=== PATIENT | male | born 1980 | race Caucasian/White ===

== ENCOUNTER 2016-06-25 16:45 | Observation (INO) | payer BC ==
--- NOTE | ~2016-06-25 | OP ---
Record Of Operation [facility] [address] [place]. [address] NAME: DOMENIC MOORE : 82 STATUS : ADM Dae PAT#: [id number] AGE: 35 ADM/REG DATE : 06/25/16 MR#: [id number] REPORT SERV DATE: 06/26/16 DICTATED BY: NICK LUNDY III DATE: 06/26/16 REPORT STATUS : Draft TRANSCRIBED BY: MODL DATE: 06/26/16 DATE OF PROCEDURE: 06/26/2016 PROCEDURES: Cystoscopy, right retrograde, ureteroscopy and insertion of double-J stent. PREOPERATIVE DIAGNOSIS: Right ureteral calculus. POSTOPERATIVE DIAGNOSIS: Right ureteral calculus. ANESTHESIA: General. SURGEON: Nick Lundy M.D. PROCEDURE IN DETAIL: Following induction of adequate general anesthesia, the patient was placed in dorsal lithotomy position and prepped and draped in a sterile fashion. The urethra was examined and noted to be normal. The prostate was small, nonobstructing. The bladder was entered. There were no tumors, stones, or foreign bodies. A left retrograde was done showing a somewhat small distal ureter, approximately a third of the pelvic ureter and up to a 9 to 10 mm stone at the level of the iliac vessels. There was a fair amount of hydronephrosis above the dye. He required a little bit of pressure to get dye into the upper ureter. A wire was placed easily around the stone and coiled in the upper pole of the kidney. I then tried to pass a ureteral scope alongside the wire and the ureter and the orifice was simply too tight. I tried to pass a wire over the wire. It was still very narrow. I was able to pass a Lucinda several centimeters, but began meeting resistance. At this point, I tried a second wire to spread the ureter and at this point, I was not able to maneuver above the distal orifice. A 4 cm balloon dilator was attempted and met significant resistance. After that, I was able to get the ureteroscope just inside the orifice probably to the bladder hiatus and saw no stone. The ureter simply was quite narrow. I injected through this and saw no filling defects. I did not persist with a ballooning more than one attempt. I felt that further manipulation especially if it required a lot of pressure to pass the balloon could risk an injury to the ureter. I elected to place a 5-Montserratian 26 cm stent. The renal pelvis was opacified after I was finally able to get a Lucinda and the position of the wire was doubly verified and a 5-Montserratian Polaris stent passed fairly easily into the upper pole calyx. It was pulled down so there was a loop in the renal pelvis, as well as a loop in the bladder. The patient tolerated the procedure well and will need a second look in two-three weeks. OB/MODL Nick Lundy III, M.D. / [id number] Record Of Operation [address] [address] NAME: DOMENIC MOORE : 82 STATUS : ADM Dae PAT#: [id number] AGE: 35 ADM/REG DATE : 06/25/16 MR#: [id number] REPORT SERV DATE: 06/26/16 DICTATED BY: NICK LUNDY III DATE: 06/26/16 REPORT STATUS : Draft TRANSCRIBED BY: JULISA DATE: 06/26/16 CC: Nick Lundy III, M.D.
[~2016-06-25 16:45] MED LIST: CIP2 PO
[2016-06-25 20:34] LABS: ASCORBIC ACID (UR NOT ORDER) NEG (NEG); BILIRUBIN, URINE NEGATIVE (NEG); KETONE, URINE NEGATIVE (NEG); LEUKOCYTE ESTERASE(NOT OR TRACE (NEG); WBC (NOT ORDERED) (RFLEX) < 1 (0-5)
[2016-06-26 06:08] LABS: BUN (BLOOD UREA NITROGEN) 13 MG/DL (6-23); CALCIUM, SERUM 8.5 MG/DL (8.5-10.4); CHLORIDE, SERUM 105 MMOL/L (96-112); CO2 (CARBON DIOXIDE) 27 MMOL/L (24-34); CREATININE 1.14 MG/DL (0.70-1.30); GFR AFRICAN AMERICAN 97 ML/MIN (>=60); GFR NON AFRICAN AMERICAN 83 ML/MIN (>=60); GLUCOSE, SERUM 86 MG/DL (60-99); POTASSIUM, SERUM 3.8 MMOL/L (3.5-5.3); SODIUM, SERUM 142 MMOL/L (135-148)
[2016-06-26 06:13] LABS: BASOPHILS 0.7 %; BASOPHILS ABSOLUTE 0.05 10/3/uL (0.0-0.16); EOSINOPHILS ABSOLUTE 0.22 10/3/uL (0.0-0.53); HEMATOCRIT 41.2 % (40.0-51.0); HEMOGLOBIN 14.2 g/dL (13.6-17.8); IMMATURE GRANULOCYTES 0.8 %; IMMATURE GRANULOCYTES ABSOLUTE 0.06 10/3/uL (0.0-0.11); LYMPHOCYTES 36.8 %; LYMPHOCYTES ABSOLUTE 2.73 10/3/uL (0.67-4.30); MEAN CORPUS HGB CONC 34.5 g/dL (32.0-36.0); MEAN CORPUSCULAR HEMOGLOB 29.3 pg (26.0-34.0); MEAN CORPUSCULAR VOLUME 85.1 fL (80-100); MEAN PLATELET VOLUME 8.2 fL (9.2-13.0); MONOCYTES ABSOLUTE 0.59 10/3/uL (0.21-1.20); NEUTROPHILS 50.7 %; NEUTROPHILS ABSOLUTE 3.76 10/3/uL (2.02-8.40); PLATELET COUNT 295 10/3/uL (150-400); RBC DISTRIBUTION WIDTH 12.3 % (12.0-16.0); RED CELL COUNT 4.84 10/6/uL (4.7-6.1); WHITE BLOOD CELLS 7.4 10/3/uL (4.5-10.5)
[2016-06-26 06:15] LABS: MANUAL DIFF NO %
[2016-07-11] MEDS ORDERED: ANTIBIOTIC (17:27)
[2016-07-11] MEDS ORDERED: ENDOCET1 TA3 PO (17:27)
[2016-07-11] MEDS ORDERED: ADDER10 PO (17:35)
== END 2016-06-26 19:00 | disposition home or self-care (01) ==
LOC: SDC 16:45 → CDU1 19:37 → CDU2 19:43 → SDC/OF 06-26 12:53
PROVIDERS: Urology
PROC: 0TP98DZ Removal of Intraluminal Device from Ureter, Via Natural or Artificial Opening Endoscopic (ICD-10-PCS; 2016-06-26)
PROC: BT1DZZZ Fluoroscopy of Right Kidney, Ureter and Bladder (ICD-10-PCS; 2016-06-26)
PROC: 0T768DZ Dilation of Right Ureter with Intraluminal Device, Via Natural or Artificial Opening Endoscopic (ICD-10-PCS; principal; 2016-06-26 10:45)
DX: N20.1 Calculus of ureter (principal); N13.30 Unspecified hydronephrosis; M10.9 Gout, unspecified; E66.9 Obesity, unspecified; Z87.442 Personal history of urinary calculi
CPT/HCPCS: 74420; 80048; 81001; 85025; A9270-GY; C1729; C1758; C1769; C2617; G0378; J2250; J2405; J2710; J3010; Q9967

== ENCOUNTER 2016-07-15 11:57 | Day surgery (SDC) | payer BC ==
--- NOTE | ~2016-07-15 | OP ---
Record Of Operation [facility] [address] [place]. [address] NAME: DOMENIC MOORE : 82 STATUS : [facility]#: [id number] AGE: 35 ADM/REG DATE : 07/15/16 MR#: [id number] REPORT SERV DATE: 07/15/16 DICTATED BY: FELICITA LUNDY III DATE: 07/15/16 REPORT STATUS : Draft TRANSCRIBED BY: MODL DATE: 07/15/16 DATE OF PROCEDURE: 07/15/2016 PROCEDURE: Cystoscopy, right retrograde, right ureteroscopic stone fragmentation and partial removal with re-insertion of double-J stent. PREOPERATIVE DIAGNOSIS: Right ureteral calculus. POSTOPERATIVE DIAGNOSIS: Right ureteral calculus. ANESTHESIA: General. PROCEDURE: Following induction of adequate general anesthesia, the patient placed in dorsal spine position, prepped and draped in a sterile fashion. The urethra was entered, noted to be normal. The prostate was traversed. The stent was grasped from the right ureter and removed. A wire was placed alongside the stone which was between L5 and S1 just above the SI joint. A rigid scope was passed gently, I was able to get to a point just below the crossing of the vessels but I had a good access with the laser fiber, and I fragmented the stone into probably seven or eight fragments. Some were somewhat large, I could not continue to progress due to the angle. The ureter was inspected on the way out, and there was no perforation. I attempted an 11-Tristanian sheath, this would not pass through the distal ureter. A 9.5 sheath passed up to approximately L4. Flexible scope was then passed into the kidney, and the fragments were reduced by dusting the majority of them. Six or seven fragments were removed and will be sent for analysis. Some of the fragments were in a lower pole calyx that were hard to get the basket on so there were simply dusted further. In the end, there were probably 8-10 fragments in the 1-10 mm size which simply could not be basketed. I examined the kidney with dye, calyx by calyx twice, I did not see any sizable fragments. Retrograde showed no perforations in the upper proximal ureter. The lower ureter was examined with the ureteroscope and removing the sheath, it was intact with no extravasation. A 5 x 26 Polaris stent was placed with a loop in the upper pole and a loop in the bladder. A suture was left taped to the penis for later removal. He tolerated the procedure well. OB/MODL Felicita Lundy III, M.D. / [id number] CC: Felicita Lundy III, M.D.
[~2016-07-15 11:57] MED LIST changes: +ADDER10 PO; +ANTIBIOTIC; +ENDOCET1 TA3 PO
[2016-07-22 19:49] LABS: STONE COMPOSITION TWO DNR (())
== END 2016-07-15 18:29 | disposition home or self-care (01) ==
LOC: SDC 11:57
PROVIDERS: Urology
PROC: 0TF68ZZ Fragmentation in Right Ureter, Via Natural or Artificial Opening Endoscopic (ICD-10-PCS; 2016-07-15)
PROC: 0T768DZ Dilation of Right Ureter with Intraluminal Device, Via Natural or Artificial Opening Endoscopic (ICD-10-PCS; principal; 2016-07-15 13:15)
DX: N20.1 Calculus of ureter (principal); G43.909 Migraine, unspecified, not intractable, without status migrainosus; M10.9 Gout, unspecified; K25.9 Gastric ulcer, unspecified as acute or chronic, without hemorrhage or perforation; K92.1 Melena; F90.9 Attention-deficit hyperactivity disorder, unspecified type; K21.9 Gastro-esophageal reflux disease without esophagitis; Z79.899 Other long term (current) drug therapy; Z79.891 Long term (current) use of opiate analgesic; Z87.442 Personal history of urinary calculi
CPT/HCPCS: 74420; 82365; A9270-GY; C1758; C1769; C1894; C2617; J1170; J2175; J2250; J2405; J2710; J3010; Q9967